=== PATIENT | male | born 1985 | race Caucasian/White ===

== ENCOUNTER 2018-09-24 15:59 | Emergency (ER) | payer MEDICAID ==
[~2018-09-24] VITALS: Ht 182.9 cm; Wt 97.7 kg
[2018-09-24] MEDS ORDERED: triamcinolone acetonide 40mg/ml inj IM ONE (17:30)
[2018-09-24] MEDS ORDERED: CETI10TA15 PO (17:33)
[2018-09-24] MEDS ORDERED: FLUT15CR7 TOP (17:33)
[2018-09-24 17:49] VITALS: BP 136/70
== END 2018-09-24 17:50 | disposition home or self-care (01) ==
LOC: ER 16:00
DX: L20.9 Atopic dermatitis, unspecified (principal); Z79.899 Other long term (current) drug therapy; Z88.2 Allergy status to sulfonamides
CPT/HCPCS: 96372; 99283; J3301

== ENCOUNTER 2023-11-28 11:09 | Emergency (ER) | payer MEDICAID, OTHER ==
[~2023-11-28] VITALS: Ht 182.9 cm; Wt 54.0 kg
[~2023-11-28 11:09] MED LIST: CETI10TA15 PO; FLUT15CR7 TOP
[2023-11-28 11:16] VITALS: BP 119/83; PULSE 87; TEMP 97.7; O2SAT 99
[2023-11-28] MEDS: proCHLORperazine 10 MG/2 ml inj IV STA (13:11)
[2023-11-28] MEDS: ketorolac trometh 15mg/ml vial 15 MG/ML ML IV STA (13:11)
[2023-11-28] MEDS: normal saline 500ml IV soln 500 ML IV STA (13:19)
[2023-11-28 13:36] LABS: BASOPHILS % (AUTO) 0.2 % (0-1); EOSINOPHILS % (AUTO) 0.4 % (0-6); HEMATOCRIT 51.6 % (42.0-52.0); HEMOGLOBIN 17.5 g/dl (14.0-17.9); LYMPHOCYTES # (AUTO) 1.9 X10'3 (1.1-4.8); LYMPHOCYTES % (AUTO) 19.3 % (21-51); MEAN CORPUSCULAR HGB CONC 33.8 g/dL (33.0-36.5); MEAN CORPUSCULAR VOLUME 94.5 FL (78-98); MEAN PLATELET VOLUME 7.6 FL (7.4-10.4); MONOCYTES # (AUTO) 0.8 X10'3 (0-0.9); MONOCYTES % (AUTO) 7.8 % (2-12); NEUTROPHILS % (AUTO) 72.3 % (42-75); PLATELET COUNT 187 X10'3 (140-440); RED BLOOD COUNT 5.45 X10'6 (4.70-6.10); RED CELL DISTRIBUTION WIDTH 13.5 % (11.5-14.5); WHITE BLOOD COUNT 9.7 X10'3 (4.5-11.0)
[2023-11-28 14:01] VITALS: RESP 16
[2023-11-28 14:02] LABS: ALANINE AMINOTRANSFERASE 25 U/L (12-78); ALBUMIN 3.8 G/DL (3.4-5.0); ALBUMIN/GLOBULIN RATIO 0.6 (1.1-1.5); ALKALINE PHOSPHATASE 123 IU/L (46-116); ANION GAP 8 (8-16); ASPARTATE AMINO TRANSFERASE 36 U/L (10-37); BILIRUBIN,TOTAL 0.4 MG/DL (0.1-1.0); BLOOD UREA NITROGEN 7 MG/DL (7-18); CALCIUM 9.2 MG/DL (8.5-10.1); CHLORIDE 98 MMOL/L (99-107); CREATININE 0.87 MG/DL (0.60-1.10); GLUCOSE 93 MG/DL (70-104); POTASSIUM 3.8 MMOL/L (3.5-5.1); SODIUM 135 MMOL/L (135-145); TOTAL CARBON DIOXIDE 28.7 MMOL/L (24-32); TOTAL PROTEIN 9.7 G/DL (6.4-8.2); eCRCL 87 ML/MIN; eGFR > 90 ML/MIN
== END 2023-11-28 15:26 | disposition left against medical advice (07) ==
LOC: ER 11:09
DX: R51.9 Headache, unspecified (principal); R50.9 Fever, unspecified; R11.2 Nausea with vomiting, unspecified; F17.200 Nicotine dependence, unspecified, uncomplicated; R22.9 Localized swelling, mass and lump, unspecified; Z88.2 Allergy status to sulfonamides; Z79.899 Other long term (current) drug therapy; Z79.51 Long term (current) use of inhaled steroids
CPT/HCPCS: 36415; 80053; 85025; 96361; 96374; 96375; 99284; J0780; J1885; J7040; J7030